=== PATIENT | male | born 1995 | race Caucasian/White ===

== ENCOUNTER 2016-11-15 10:22 | Inpatient (IN) | payer OTHER ==
[~2016-11-15] VITALS: Ht 200.7 cm; Wt 81.6 kg
[2016-11-15] MEDS ORDERED: IBUPROFEN 400 MG TABLET PO PRN (18:30)
[2016-11-15] MEDS ORDERED: MAG HYDROX/AL HYDROX/SIMETH 30 ML LIQUID UDC PO PRN (18:30)
[2016-11-15] MEDS ORDERED: DICYCLOMINE HCL 20 MG TABLET PO PRN (18:30)
[2016-11-15] MEDS ORDERED: diphenhydrAMINE 50 MG CAPSULE PO PRN (18:30)
[2016-11-15] MEDS ORDERED: LORAZEPAM 1 MG TABLET PO PRN ×2 (18:30)
[2016-11-15] MEDS ORDERED: MIRALAX 17 GM POWD.PACK PO PRN (18:30)
[2016-11-15] MEDS ORDERED: MAGNESIUM HYDROXIDE 30 ML LIQUID UDC PO PRN (18:30)
[2016-11-15] MEDS ORDERED: HYDROXYZINE PAMOATE 25 MG CAPSULE PO PRN (18:30)
[2016-11-15] MEDS ORDERED: LORAZEPAM 2 MG/1 ML VIAL IM PRN (18:30)
[2016-11-15] MEDS ORDERED: ACETAMINOPHEN 325 MG TABLET PO PRN (18:30)
[2016-11-15] MEDS ORDERED: LOPERAMIDE HCL 2 MG CAPSULE PO PRN ×2 (18:30)
[2016-11-15] MEDS ORDERED: ONDANSETRON ODT 4 MG TAB.RAPDIS SL PRN (18:30)
[2016-11-15] MEDS ORDERED: CLONIDINE HCL 0.1 MG TABLET PO PRN (18:30)
[2016-11-15 19:00] VITALS: BP 138/85
[2016-11-15] MEDS ORDERED: THIAMINE HCL 200 MG/2 ML VIAL IM ONE (20:00)
[2016-11-15] MEDS ORDERED: LORAZEPAM 1 MG TABLET PO SCH (21:00)
[2016-11-15 21:21] LABS: BASOPHILS % (AUTO) 0.4 % (0.0-2.0); EOSINOPHILS # (AUTO) 0.3 K/uL (0.0-0.7); EOSINOPHILS % (AUTO) 4.6 % (0.0-7.0); HEMATOCRIT 43.8 % (40.0-50.0); HEMOGLOBIN 15.4 g/dL (14.0-18.0); LYMPHOCYTES # (AUTO) 1.8 K/uL (0.8-4.8); LYMPHOCYTES % (AUTO) 24.1 % (20.5-51.5); MEAN CORPUSCULAR HEMOGLOBIN 31.3 uug (27.0-31.0); MEAN CORPUSCULAR HGB CONC 35 g/dL (32.0-37.0); MEAN CORPUSCULAR VOLUME 88.9 fL (82.0-92.0); MONOCYTES # (AUTO) 0.4 K/uL (0.1-1.30); MONOCYTES % (AUTO) 6.1 % (0.0-11.0); NEUTROPHILS # (AUTO) 4.8 K/uL (1.8-8.9); NEUTROPHILS % (AUTO) 64.8 % (38.5-71.5); PLATELET COUNT (AUTO) 227 K/uL (150-450); RED BLOOD CELL COUNT(AUTO) 4.93 MIL/uL (4.70-6.10); RED CELL DISTRIBUTION WIDTH 12.3 % (11.5-14.5); WHITE BLOOD COUNT (AUTO) 7.4 K/uL (4.0-11.2)
[2016-11-15 21:25] LABS: ETHANOL < 3 MG/DL (0-0)
[2016-11-15 21:26] LABS: ALANINE AMINOTRANSFERASE 56 U/L (16-63); ALBUMIN 4.2 g/dL (3.4-5.0); ALKALINE PHOSPHATASE 84 U/L (50-136); AMYLASE 42 U/L (25-115); ASPARTATE AMINOTRANSFERASE 38 U/L (15-37); BILIRUBIN,TOTAL 0.7 mg/dL (0.2-1.0); CALCIUM 8.9 mg/dL (8.5-10.1); CARBON DIOXIDE 29 mmol/L (21-32); CHLORIDE 103 mmol/L (98-107); CREATININE 1.1 mg/dL (0.6-1.3); GFR 85 mL/min (>60); GLUCOSE 100 mg/dL (74-106); LIPASE 121 U/L (73-393); MAGNESIUM 1.9 mg/dL (1.8-2.4); POTASSIUM 3.4 mmol/L (3.5-5.1); SODIUM SERUM 140 mmol/L (136-145); TOTAL PROTEIN, SERUM 7.1 g/dL (6.4-8.2); UREA NITROGEN, BLOOD 6 mg/dL (7-18)
[2016-11-15] MEDS ORDERED: POTASSIUM CHLORIDE 10 MEQ CAPSULE.SA PO ONE (21:45)
[2016-11-15 21:47] LABS: HIV-1 p24 ANTIGEN NON REACTIVE (NONREACTIVE); HIV-1/2 ANTIBODY NON REACTIVE (NONREACTIVE)
[2016-11-15 21:49] LABS: THYROID STIMULATING HORMONE 3.149 mIU/mL (0.358-3.740)
[2016-11-15 23:52] LABS: *AMPHETAMINE, URINE NEGATIVE (NEGATIVE); *BARBITURATE, URINE NEGATIVE (NEGATIVE); *CANNABINOID, URINE POSITIVE (NEGATIVE); *COCCAINE, URINE NEGATIVE (NEGATIVE); *OPIATE, URINE NEGATIVE (NEGATIVE); *PHENCYCLIDINE SCREEN,URINE NEGATIVE (NEGATIVE)
[2016-11-16] VITALS: BP 126/82
[2016-11-16 04:00] VITALS: BP 127/80
[2016-11-16 08:00] VITALS: BP 123/71
[2016-11-16] MEDS ORDERED: TUBERCULIN,PURIF.PROT.DERIV. 5 TU/0.1 ML TEST ID ONE (09:00)
[2016-11-16] MEDS: LORAZEPAM 1 MG TABLET PO SCH ×3 (09:07→21:37)
[2016-11-16] MEDS: THIAMINE HCL 100 MG TABLET PO SCH (09:07)
[2016-11-16] MEDS: FOLIC ACID 1 MG TABLET PO SCH (09:07)
[2016-11-16] MEDS: MULTIVITAMINS,THERAPEUTIC TABLET PO SCH (09:07)
[2016-11-16 12:00] VITALS: BP 133/90
[2016-11-16 16:00] VITALS: BP 115/78
[2016-11-16 20:00] VITALS: BP 125/83
[2016-11-17] VITALS: BP 125/89
[2016-11-17 04:00] VITALS: BP 122/73
[2016-11-17 05:55] LABS: HCV AB <0.1 s/co ratio (0.0-0.9); HEPATITIS B CORE AB, IgM Negative (Negative); HEPATITIS B SURFACE AG Negative (Negative)
[2016-11-17 08:00] VITALS: BP 112/65
[2016-11-17 08:07] LABS: ALBUMIN 4.3 g/dL (3.4-5.0); BILIRUBIN,DIRECT 0.2 mg/dL (0.0-0.2); BILIRUBIN,TOTAL 0.9 mg/dL (0.2-1.0); CALCIUM 9.4 mg/dL (8.5-10.1); CREATININE 0.9 mg/dL (0.6-1.3); PHOSPHOROUS 3.6 mg/dL (2.5-4.9); POTASSIUM 3.9 mmol/L (3.5-5.1); TOTAL PROTEIN, SERUM 7.4 g/dL (6.4-8.2)
[2016-11-17] MEDS: LORAZEPAM 1 MG TABLET PO SCH ×4 (08:48→21:04)
[2016-11-17] MEDS: MULTIVITAMINS,THERAPEUTIC TABLET PO SCH (08:48)
[2016-11-17] MEDS: THIAMINE HCL 100 MG TABLET PO SCH (08:48)
[2016-11-17] MEDS: FOLIC ACID 1 MG TABLET PO SCH (08:48)
[2016-11-17 12:00] VITALS: BP 120/68
[2016-11-17 16:00] VITALS: BP 110/71
[2016-11-17 20:00] VITALS: BP 147/97
[2016-11-17] MEDS: GABAPENTIN 300 MG CAPSULE PO SCH (21:04)
[2016-11-18] VITALS: BP 130/77
[2016-11-18 04:00] VITALS: BP 134/76
[2016-11-18 09:01] VITALS: BP 134/85
[2016-11-18] MEDS: THIAMINE HCL 100 MG TABLET PO SCH (09:03)
[2016-11-18] MEDS: MULTIVITAMINS,THERAPEUTIC TABLET PO SCH (09:03)
[2016-11-18] MEDS: FOLIC ACID 1 MG TABLET PO SCH (09:03)
[2016-11-18] MEDS: LORAZEPAM 1 MG TABLET PO SCH ×3 (09:03→20:35)
[2016-11-18] MEDS: GABAPENTIN 300 MG CAPSULE PO SCH ×2 (09:03→20:35)
[2016-11-18 14:30] VITALS: BP 117/88
[2016-11-18 17:54] VITALS: BP 140/88
[2016-11-18 20:00] VITALS: BP 143/90
[2016-11-19] VITALS: BP 114/81
[2016-11-19 04:00] VITALS: BP 122/69
[2016-11-19 08:00] VITALS: BP 143/77
[2016-11-19] MEDS: GABAPENTIN 300 MG CAPSULE PO SCH ×2 (08:39→20:54)
[2016-11-19] MEDS: THIAMINE HCL 100 MG TABLET PO SCH (08:39)
[2016-11-19] MEDS: MULTIVITAMINS,THERAPEUTIC TABLET PO SCH (08:39)
[2016-11-19] MEDS: LORAZEPAM 1 MG TABLET PO SCH ×2 (08:39→20:54)
[2016-11-19] MEDS: FOLIC ACID 1 MG TABLET PO SCH (08:39)
[2016-11-19 12:00] VITALS: BP 134/94
[2016-11-19 16:00] VITALS: BP 132/92
[2016-11-19 20:00] VITALS: BP 140/87
[2016-11-20] VITALS: BP_SYST 122; BP_SYST 132; BP_DIAS 70
[2016-11-20 04:00] VITALS: BP_SYST 115; BP_SYST 136; BP_DIAS 64; BP_DIAS 85
[2016-11-20 08:00] VITALS: BP 146/87
[2016-11-20] MEDS: FOLIC ACID 1 MG TABLET PO SCH (09:14)
[2016-11-20] MEDS: MULTIVITAMINS,THERAPEUTIC TABLET PO SCH (09:14)
[2016-11-20] MEDS: GABAPENTIN 300 MG CAPSULE PO SCH ×2 (09:14→20:30)
[2016-11-20] MEDS: THIAMINE HCL 100 MG TABLET PO SCH (09:14)
[2016-11-20 12:00] VITALS: BP 139/89
[2016-11-20 16:00] VITALS: BP 139/96
[2016-11-20 17:10] LABS: *AMPHETAMINE, URINE NEGATIVE (NEGATIVE); *BARBITURATE, URINE NEGATIVE (NEGATIVE); *CANNABINOID, URINE POSITIVE (NEGATIVE); *COCCAINE, URINE NEGATIVE (NEGATIVE); *OPIATE, URINE NEGATIVE (NEGATIVE); *PHENCYCLIDINE SCREEN,URINE NEGATIVE (NEGATIVE)
[2016-11-20 20:00] VITALS: BP 140/90
[2016-11-21] VITALS: BP 120/81
[2016-11-21 04:00] VITALS: BP 138/80
[2016-11-21 08:00] VITALS: BP 135/82
[2016-11-21] MEDS: FOLIC ACID 1 MG TABLET PO SCH (08:20)
[2016-11-21] MEDS: GABAPENTIN 300 MG CAPSULE PO SCH (08:20)
[2016-11-21] MEDS: MULTIVITAMINS,THERAPEUTIC TABLET PO SCH (08:20)
[2016-11-21] MEDS: THIAMINE HCL 100 MG TABLET PO SCH (08:21)
[2016-11-21] MEDS ORDERED: Gabapentin PO (09:02)
[2016-11-21] MEDS ORDERED: HYDR-3895 PO (09:02)
[2016-11-21] MEDS ORDERED: DIPH50CA37 PO (09:02)
== END 2016-11-21 09:55 | disposition other institution (70) | DRG 895 ==
LOC: SRC 17:36
PROVIDERS: ADMIT Internal Medicine; ATTEND Internal Medicine
PROC: HZ2ZZZZ Detoxification Services for Substance Abuse Treatment (ICD-10-PCS; principal; 2016-11-15)
PROC: HZ31ZZZ Individual Counseling for Substance Abuse Treatment, Behavioral (ICD-10-PCS; 2016-11-16)
PROC: HZ41ZZZ Group Counseling for Substance Abuse Treatment, Behavioral (ICD-10-PCS; 2016-11-17)
DX: F10.231 Alcohol dependence with withdrawal delirium (principal); F19.20 Other psychoactive substance dependence, uncomplicated; K70.10 Alcoholic hepatitis without ascites; Y90.9 Presence of alcohol in blood, level not specified; E87.6 Hypokalemia; F11.10 Opioid abuse, uncomplicated; Z83.3 Family history of diabetes mellitus; Z81.1 Family history of alcohol abuse and dependence; M41.9 Scoliosis, unspecified; F41.9 Anxiety disorder, unspecified; F17.210 Nicotine dependence, cigarettes, uncomplicated; F14.10 Cocaine abuse, uncomplicated; F12.10 Cannabis abuse, uncomplicated
CPT/HCPCS: 36415; 70030-TC; 71010; 80307; 80349; 83690; 83735; 84100; 84443; 85025; 86592; 86705; 86803; 87340; 87806; A4663; G6040-TC; J3411